=== PATIENT | female | born 1945 | race Caucasian/White ===

== ENCOUNTER 2017-01-26 09:08 | Emergency (ER) | payer MEDICARE, BC ==
--- NOTE | ~2017-01-26 | CT98 ---
[facility] A Service of [facility] & [facility] RADIOLOGY TEXT RESULTS PATIENT: MELISSA HENSON LOCATION: YONI : 43 UNIT #: [id number] AGE: [address]: Carlos Jackson SEX: F ORDER DR: [id number] [facility] [address] [place], [place] [address] [id number] E MR#: [id number] Acc #: [id number] NAME: MELISSA HENSON : 1945 SEX: F STUDY DATE/TIME: 01/26/2017 10:03 UNIT: YONI ROOM: STUDY DESCRIPTION: CT Lumbar Spine Wo Cont Attending Physician: Carlos Jackson Ordering Physician: Carlos Jackson Primary Care Physician: Arya Rouse M.D. MEDICAL IMAGING REPORT This report is preliminary unless electronic signature is present EXAM CT lumbar spine without contrast, 01/26/2017 HISTORY 71-year-old female with low back pain radiating to the right hip since 01/23/2017 COMPARISON None. TECHNIQUE Helical scan performed through the lumbar spine without IV contrast. Coronal and sagittal reformatted images. This CT exam was performed with one or more of the following radiation dose reduction techniques: automatic exposure control, adjustment of mA and/or kV according to patient size, and iterative reconstruction. FINDINGS No evidence of acute fracture or subluxation. Vertebral body heights and alignment are normally maintained. There are advanced multilevel discogenic degenerative changes with prominent anterior osteophyte formation. Advanced multilevel facet degeneration. This produces [id number] canal stenosis at multiple levels. If clinical symptoms persist, consider further characterization with nonemergent lumbar spine MRI. Visualized sacrum and SI joints are intact. There are moderate degenerative changes of the visualized SI joints. Paravertebral soft tissues are unremarkable. IMPRESSION 1. No acute lumbar spine injury. 2. Advanced multilevel degenerative changes. This produces mild to [facility] of [facility] RADIOLOGY TEXT RESULTS PATIENT: MELISSA HENSON LOCATION: YONI : 43 UNIT #: [id number] AGE: [address]: Carlos Jackson SEX: F ORDER DR: moderate canal stenosis at multiple levels. If clinical symptoms persist, consider further evaluation with a nonemergent lumbar spine MRI. Dictated by... El Bettencourt M.D. THIS IS AN ELECTRONICALLY VERIFIED REPORT El eBttencourt M.D. at 01/27/2017 8:43 AM ONELIA/britni TD: 01/26/2017 21:55 JOB #: [id number] MEDICAL IMAGING REPORT Page 1 of 1 COPY
--- NOTE | ~2017-01-26 | CT4 ---
[facility] A Service of [facility] RADIOLOGY TEXT RESULTS PATIENT: MELISSA HENSON LOCATION: YONI : 43 UNIT #: [id number] AGE: [address]: Carlos Jackson SEX: F ORDER DR: [id number] [facility] [address] [place], [place] [address] [id number] E MR#: [id number] Acc #: [id number] NAME: MELISSA HENSON : 1945 SEX: F STUDY DATE/TIME: 01/26/2017 9:55 UNIT: YONI ROOM: STUDY DESCRIPTION: CT Abd and Pelv Wo Cont Attending Physician: Carlos Jackson Ordering Physician: Carlos Jackson Primary Care Physician: Arya Rouse M.D. MEDICAL IMAGING REPORT This report is preliminary unless electronic signature is present EXAM CT abdomen and pelvis without contrast 01/26/2017 HISTORY 71-year-old female with right flank pain since 01/23/2017. COMPARISON None. TECHNIQUE Helical scan performed through the abdomen and pelvis without oral or IV contrast. Coronal and sagittal reformatted images. This CT exam was performed with one or more of the following radiation dose reduction techniques: Automatic exposure control, adjustment of mA and/or kV according to patient size, and iterative reconstruction. FINDINGS Visualized lung bases are unremarkable. There is ectasia of the ascending thoracic aorta measuring at least 4.1 cm. Heart size is upper limits of normal. The liver, spleen, pancreas, both adrenal glands, and both kidneys are unremarkable. No urinary tract stones or hydronephrosis. Cholelithiasis. Abdominal aorta normal in course and caliber. Small bowel is unremarkable without obstruction. Appendix is normal. Uncomplicated descending and sigmoid colonic diverticulosis. Colon otherwise unremarkable. No free fluid or free air. Urinary bladder, uterus, and both adnexa are unremarkable. No free pelvic fluid. Advanced multilevel degenerative changes throughout the visualized thoracolumbar spine. No acute bony abnormality. [facility] A Service of [facility] RADIOLOGY TEXT RESULTS PATIENT: MELISSA HENSON LOCATION: Y[place]I : 43 UNIT #: [id number] AGE: [address]: Carlos Jackson SEX: F ORDER DR: IMPRESSION 1. Negative for urinary tract stones or hydronephrosis. 2. Cholelithiasis. 3. Normal appendix. 4. Uncomplicated descending and sigmoid colonic diverticulosis. 5. Ectasia of the visualized ascending thoracic aorta measuring at least 4.1 cm in diameter. Dictated by... El Bettencourt M.D. THIS IS AN ELECTRONICALLY VERIFIED REPORT El Bettencourt M.D. at 01/27/2017 8:43 AM ONELIA/lanie TD: 01/26/2017 21:58 JOB #: [id number] MEDICAL IMAGING REPORT Page 1 of 1 COPY
[2017-01-26 10:07] LABS: URINE SOURCE CLEAN CATCH
[2017-01-26 10:15] LABS: URINE APPEARANCE CLEAR; URINE BILIRUBIN NEG (NEG); URINE BLOOD NEG (NEG); URINE COLOR YELLOW; URINE GLUCOSE NEG (NEG); URINE KETONE NEG (NEG); URINE LEUKOCYTE ESTERASE NEG (NEG); URINE NITRATE NEG (NEG); URINE PH 6.5 (5-8); URINE PROTEIN NEG (NEG); URINE SPECIFIC GRAVITY 1.004 (1.003-1.035); URINE UROBILINOGEN 0.2 MG/DL (NEG)
[2017-01-26 10:18] LABS: CULTURE INDICATED? NO
== END 2017-01-26 12:12 | disposition home or self-care (01) ==
LOC: CED 09:08
PROVIDERS: Nurse Practitioner
DX: M51.36 Other intervertebral disc degeneration, lumbar region (principal); I10 Essential (primary) hypertension
CPT/HCPCS: 36415; 72131; 74176; 81003; 96374; 96375; 99284; J1170; J2405